=== PATIENT | female | born 1960 | race Caucasian/White ===

== ENCOUNTER 2022-01-14 09:39 | Observation (INO) ==
--- NOTE | 2022-01-03 11:14 | PAT Medication Instructions ---
Medication Instructions Date of Service January 03, 2022 Home Medications acetaminophen 500 mg tablet 500 mg PO QID PRN Pain ibuprofen 600 mg tablet 600 mg PO Q6H PRN Pain ASK your surgeon for instructions ibuprofen 600 mg tablet 600 mg PO Q6H PRN Pain Take morning of surgery With a small sip of water, OTHERWISE NOTHING TO EAT OR DRINK AFTER MIDNIGHT: acetaminophen 500 mg tablet 500 mg PO QID PRN Pain (if needed) Take evening before surgery acetaminophen 500 mg tablet 500 mg PO QID PRN Pain (if needed) Other Notes If you have any questions please call us at [phone] or [phone] or [phone] or [phone]
--- NOTE | 2022-01-07 10:58 | Anesthesiology Consultation ---
Date of Service January 07, 2022 Assessment & Plan (1) Encounter for pre-operative examination: - IV team. - Outpatient joint pathway: Per surgeon and patient, plan for outpatient joint program. Upon review of chart- patient is* an acceptable candidate for Same Day Joint Program from anesthesia perspective pending perioperative course. Pending patient is motivated, has good support and surgeon's office completes Same Day Joint Program preop requirements- patient may proceed with outpatient [facility]. Chart Review Chart Review: Acceptable Risk for Surgery and Patient seen in Pre Admission Testing Teaching & Discussion Pre-Anesthesia Teaching/Discussion Notes: Instructed NPO after midnight before surgery, except medications with 15 cc of water. Medication instructions provided according to the PAT guidelines. History Surgery Operation Date: 01/14/22 12:30 Proposed Procedures p Left Total Hip Arthroplasty - Hal Nice MD Height/Weight Height: 5 ft 5 in Weight: 112.7 kg Allergies Allergy/AdvReac Type Severity Reaction Status Date / Time No Known Allergies Allergy Unverified 01/03/22 07:44 Medications Home Medications Medication Instructions Recorded Confirmed Last Taken acetaminophen 500 mg tablet 500 mg PO QID PRN Pain 01/03/22 01/03/22 Unknown ibuprofen 600 mg tablet 600 mg PO Q6H PRN Pain 01/03/22 01/03/22 Unknown Past Medical History Medical History (Updated 01/07/22 @ 11:09 by Kath Hyde PA-C) GERD (gastroesophageal reflux disease) diet controlled, occasional TUMS use, stable per pt White coat syndrome with high blood pressure but without hypertension Patient denies h/o stroke, seizures, heart attack, heart failure, DM, blood clots or blood transfusions. Exercise / Class Metabolic Activity III < 4 Walking/Shop/Light housework (denies CP or SOB with usual activities) Past Surgical History Surgical History H/O oral surgery History of bilateral tubal ligation History of hysterectomy Past Anesthesia History No Hx of Anesthesia Complications and No Family Hx of Anesthesia Complications History of PONV No Hx of PONV and No Hx of Motion Sickness Social History Smoking Status: Never smoker Do You Dip or Chew Tobacco: No Hx Alcohol Use: No Hx Substance Use: No substance use type: does not use Review of Systems Snoring, denies witnessed apneas. Patient denies chest pain, shortness of breath, dyspnea on exertion, fever, chills, cough, wheezing, or palpitations. Physical Exam Vital Signs Vitals BP 140/90 P 96 TEMP 98.1 SP02 98% on RA RESP 18 Physical Full cervical extension range of motion without pain TMD 3.5 finger breadths Mallampati Score 2 Dentition: intact, crown, partial upper front teeth; denies chipped or loose teeth Lungs: normal respiratory effort. Clear throughout to auscultation, no adventitious breath sounds Cardiac: regular rate and rhythm, no murmurs noted Carotid arteries: negative bruit bilat Lab Results Anesthesia Preop Results Results Anesthesia Widget: WBC 8.76 K/ul (4.8-10.8) 01/07/22 Hgb 14.2 g/dl (12.0-16.0) 01/07/22 Hct 43.2 % (34.1-44.9) 01/07/22 Plt 321 K/uL (130-400) 01/07/22 Na 140 mmol/L (136-145) 01/07/22 K 3.9 mmol/L (3.5-5.1) 01/07/22 Cl 104 mmol/L (98-107) 01/07/22 CO2 28 mmol/L (21-32) 01/07/22 BUN 16 mg/dl (6-23) 01/07/22 Creat 0.66 mg/dl (0.6-1.2) 01/07/22 Glucose Level 99 mg/dl (70-99(Fasting)) 01/07/22 PT 10.5 Seconds (9.0-12.0) 01/07/22 PTT 26.5 Seconds (21.0-31.0) 01/07/22 INR 1.0 (0.9-1.1) 01/07/22 Blood Type A Negative 01/07/22 Antibody Screen NEGATIVE 01/07/22 Testing Electrocardiogram Date: 01/07/22 NSR, rate 98 bpm Left axis deviation RBBB Chest X-Ray Date: 01/07/22 PA and lateral chest radiographs are obtained. No prior studies are available for comparison at the time of dictation. The cardiomediastinal silhouette is top normal for projection. There is mild bibasilar atelectasis. The lungs and pleural spaces are otherwise clear. There is no pneumothorax. The skeletal structures are osteopenic. The bony thorax appears intact. IMPRESSION: No active disease in the chest. COVID-19 Risk Screen Screening Information COVID-19 Screen Date: 01/07/22 Exposure 21 Days Family/Household +COVID Last 21 Days: No Exposure 10 Days Any COVID Exposure Last 10 Days: No Symptoms Last 10 Days Experienced COVID Sx Last 10 Days: No + COVID 0-90 Days COVID + in Last 0-90 Days: No
[~2022-01-14 09:39] MED LIST: ACETAMINOPHEN 500 MG TAB PO SCH; BUPIVACAINE 0.5 % 5 MG/1 ML PF 10ML VIAL ONE; CeleBREX 200 MG CAP PO SCH; FAMOTIDINE 20 MG TAB PO SCH; LR 500ML BOLUS, THEN 15ML/HR IV SCH; LR 60ML/HR IV SCH; METOCLOPRAMIDE HCL 10 MG TABLET PO SCH; Scopolamine 1 MG TDSY TD SCH; TRANEXAMIC ACID 1,000 MG **IV Pre-op IV SCH; ceFAZolin 2000MG 2,000 MG/15 ML SYR IV SCH
--- NOTE | 2022-01-14 11:13 | History & Physical Bridge Note ---
Date of Service January 14, 2022 History & Physical Bridge Note I have examined the patient, reviewed the History & Physical and in the interval since the performance of the History & Physical I have noted the following changes of clinical significance: no changes noted
[2022-01-14] MEDS ORDERED: MIDAZOLAM HCL 1 MG/ML 2ML VIAL ONE ×2 (13:14→14:19)
[2022-01-14] MEDS ORDERED: fentaNYL citrate 100 MCG/2 ML VIAL ONE (13:14)
[2022-01-14] MEDS ORDERED: MoRPHine SULFATE PF 1 MG/ML 10 ML AMP/VIAL ONE (13:15)
[2022-01-14] MEDS ORDERED: BUPIVACAINE 0.5 % 5 MG/1 ML MPF 30ML VIAL ONE (13:35)
[2022-01-14] MEDS ORDERED: EPINEPHrine INJ 1 MG/ML AMP ONE (13:35)
[2022-01-14] MEDS ORDERED: LIDOCAINE 2% MPF LOCAL 5 ML VIAL INFIL ONE (13:36)
[2022-01-14] MEDS ORDERED: ONDANSETRON INJ 2 MG/ML 2 ML VIAL ONE (13:36)
[2022-01-14] MEDS ORDERED: PROPOFOL IV EMULSION 10 MG/ML 20 ML VIAL IV ONE (13:37)
[2022-01-14] MEDS ORDERED: ATROPINE SULFATE 0.1 MG/ML 10ML SYR IV PRN (14:03)
[2022-01-14] MEDS ORDERED: ePHEDrine sulfate 50 MG/ML AMP IV PRN ×2 (14:03→18:53)
[2022-01-14] MEDS ORDERED: HYDROmorphone INJ 2 MG/ML SYR/VIAL IV PRN (14:03)
[2022-01-14] MEDS ORDERED: fentaNYL citrate 100 MCG/2 ML VIAL IV PRN (14:03)
[2022-01-14] MEDS ORDERED: PHENYLEPHRINE 100MCG/ML 5ML SYR ONE (14:33)
--- NOTE | 2022-01-14 15:48 | Operative Report ---
PG Post Operative Report Pre & Post Diagnosis Operation Date: 01/14/22 12:30 Pre-Op Diagnosis: Left Hip Advanced Degenerative Joint Disease Post-Op Diagnosis: Left Hip Advanced Degenerative Joint Disease I identified the patient and participated in the time-out.: Yes Procedure Operation Date: 01/14/22 12:30 Actual Procedures p Left Total Hip Arthroplasty, Uncemented(Left) - Hal Nice MD Surgeon Hal Nice MD Manager Supply Jb Roche PA-C Estimated Blood Loss 200 Findings Consistent with Post-Op Diagnosis Operative findings were advanced left hip DJD. She had a grade 4 [id number] disease of the femoral head and acetabulum. Moderate-sized joint effusion. Fairly minimal osteophyte formation. Fluids 1300 cc Specimens Left femoral head sent for pathology Drains None Anesthesia Type Spinal MAC Complications none Disposition Accompanied Patient To Recovery: No Indications Patient is 61-year-old female has had a several year history of increasing bilateral hip pain discomfort the left side worse than the right. She is taken various oral medicines without much relief. X-rays show advanced hip arthritis on both sides left side a bit worse than the right. She elected proceed with total hip arthroplasty. Description of Procedure Operative implants consist of: 1 Biomet G7 size 54 mm acetabular shell. 2. [place] hole fiber heel piece shaper. 3. 6.5 cancellous acetabular screws were 35 mm in length by 30 mm meters in length. 4. Highly cross-linked polyethylene liner with a 54 mm outer diameter and 36 mm inner diameter. 5. DePuy [place]ail size 12 short neck/125 degree angle femoral stem. 6. +5/36 mm ceramic articular ball. The patient was taken the operating room, identified, placed on the operating table supine position protectors were properly padded. IV antibiotics tried by anesthesia team. Spinal anesthetic had been implemented holding area. Perera catheter was placed in sterile fashion. Patient then placed in the right lateral decubitus position. An axillary roll was placed. A Stulberg hip positioner was used for positioning. Left hip and leg were then prepped and draped in usual sterile fashion. A posterior lateral posterior left hip was then performed through a curvilinear incision centered over the greater trochanter. Sharp dissection Through subcutaneous tissue down to level the IT band gluteal fascia the IT band gluteal fascia incised longitudinally in line with skin incision. The underlying greater bursa was excised. The piriformis and external rotators were tagged and taken off the posterior aspect hip joint capsule. Great care was taken throughout the procedure protect the sciatic nerve at all times. A posterior capsulotomy was then performed leaving a large flap for later repair. Hip was internally rotated and dislocated. A femoral neck osteotomy cut was made with Final Cut about 12 mm above the lesser trochanter. Femoral head was removed and sent for pathology. The femur was retracted anteriorly. Attention drawn the acetabulum. The acetabular labrum was excised. Pulmonary fat was excised. Sequential reaming the acetabular was then performed beginning with a size 45 and progressing up to a 53. I did reamed a little bit with a 54 reamer and then placed a 54 mm Biomet G7 acetabular shell in about 40 degrees lateral opening and 20 degrees of anteversion. It was fixed with two 6.5 cancellous acetabular screws. Trial liner was placed. Attention drawn the femur. The proximal femur was entered with a [place] cutter followed by canal finder. I then broached begin the size 8 and progressing up to 11. We got good pretty good fit at 11. We trialed the hip with this and it was extremely stable. Unfortunate was a bit tight and we had a little difficulty dislocating the hip and in doing so the femoral stem was seen to rotate in the femoral canal so we broached up to a size 12. He elected to use a short neck in order to decrease soft tissue tension. We elect to place these implants. Nupathe all trial implants were removed. An apex hole fiber heel piece shaper was placed. Highly cross-linked polyethylene liner was placed. A size 12 KLA short neck/125 degree angle femoral stem was impacted in position. He had excellent rotational stability. A +5/36 mm ceramic articular ball was placed. Hip was located once again found to be stable. Attention drawn toward closing. Wounds irrigated scope sounds pulsatile lavage solution. We did inject locally with 60 cc of half percent Marcaine with epinephrine. The posterior capsule and external rotators were repaired through drill holes in the posterior trochanter with #2 Tycron suture. The IT band gluteal fascia then closed with #1 PDS suture running fashion for subcutaneous tissues then closed with 2 layers with a deep layer #1 Vicryl suture and subcutaneous tissue with 2-0 Dexon suture in a buried interrupted fashion the skin was closed skin ana luisa. Leg was then cleaned and dried. A Prevena VAC. Dressing was then applied. The patient was then transferred to the recovery room in stable condition. Patient tolerated th e procedure well and there are no complications. Jb Roche, my physician commissary assistant, was present for the entire procedure. His assistance was essential and required for appropriate patient positioning, prepping and draping, surgical exposure, performing the technical details of the operation, placement the implants, closure of the wound, and placement of the sterile bandage. I attest to the content of the Intraoperative Record and any orders documented therein. Any exceptions are noted below.
--- NOTE | 2022-01-14 16:13 | XRay Report ---
XR hip 1V LT w pelvis HISTORY: 61 years-old Female IN PACU - Post Surgical left hip total joint arthroplasty COMPARISON: Pelvis and hip radiographs 01/02/2022 TECHNIQUE: AP view of the pelvis with crosstable lateral view of the left hip FINDINGS: Severe right hip osteoarthritis redemonstrated. Left hip total joint arthroplasty with lateral skin s taples, expected postoperative soft tissue swelling and deep tissue air. No acute fracture or unexpec benson opaque foreign body. IMPRESSION: Left hip total joint arthroplasty with expected postoperative changes. ACT 112: Negative or not required by law. The above report was generated using voice recognition software. It may contain grammatical, syntax o r spelling errors. Electronically signed by: Nikolas Sol M.D. 01/14/2022 4:11 PM
[2022-01-14] MEDS ORDERED: bisacodyL 10 MG SUPP PR PRN (16:24)
[2022-01-14] MEDS ORDERED: KETOROLAC 30 MG/ML VIAL IV SCH (16:24)
[2022-01-14] MEDS ORDERED: MAGNESIUM HYDROXIDE SUSP 30 ML UDC PO PRN (16:24)
[2022-01-14] MEDS ORDERED: NALOXONE HCL 0.4 MG/1 ML VIAL/CARP IV PRN ×2 (16:24→18:53)
[2022-01-14] MEDS ORDERED: ALUMINUM/MAGNESIUM SUSP 30 ML UDC PO PRN (16:24)
--- NOTE | 2022-01-14 16:33 | Anesthesiology Progress Note ---
Date of Service January 14, 2022 Anesthesia Post Procedure Vital Signs Vital Signs: Temp Pulse Pulse Resp BP BP Pulse Ox 01/14/22 16:05 97.9 F 89 17 114/62 98 01/14/22 15:55 82 21 146/74 H 99 01/14/22 15:45 89 14 118/68 100 01/14/22 15:38 97.7 F 92 H 18 117/74 93 01/14/22 10:00 98.6 F 107 H 20 166/97 H 98 O2 Del Method O2 Flow Rate 01/14/22 16:05 Room Air 01/14/22 15:55 Oxymask 2 01/14/22 15:45 Oxymask 6 01/14/22 15:38 Oxymask 6 01/14/22 10:00 Room Air Transfer of Care Handoff Completed per policy Notes Mental Status: alert / awake / arousable and participated in evaluation Patient Amnestic to Procedure: Yes Nausea / Vomiting: adequately controlled Pain: adequately controlled Airway Patency, RR, SpO2: stable & adequate BP & HR: stable & adequate Hydration State: stable & adequate Neuraxial Anesthesia: was administered and sensory block is resolving Anesthetic Complications: no major complications apparent and Pt Satisfied with anesthetic care
[2022-01-14] MEDS: SODIUM CHLORIDE 0.9% 1000ML 1,000 ML IV SCH (16:36)
[2022-01-14] MEDS: Scopolamine CHECK PATCH PLACEMENT SCH (16:36)
[2022-01-14] MEDS: ASCORBIC ACID 500 MG TAB PO SCH (17:47)
[2022-01-14] MEDS ORDERED: MoRPHine SULFATE PF 1 MG/ML 10 ML AMP/VIAL INT SPINAL ONE (18:53)
[2022-01-14] MEDS ORDERED: MEPERIDINE HCL 25 MG/ML CARP/VIAL IV PRN (18:53)
[2022-01-14] MEDS ORDERED: LACTATED RINGER'S 500 ML IV PRN (18:53)
[2022-01-14] MEDS ORDERED: KETOROLAC 30 MG/ML VIAL IV PRN (18:53)
[2022-01-14] MEDS ORDERED: NALBUPHINE HCL INJ 10 MG/ML AMP IV PRN (18:53)
[2022-01-14] MEDS ORDERED: diphenhydrAMINE 50 MG/ML VIAL IV PRN (18:53)
[2022-01-14] MEDS ORDERED: NALOXONE HCL 1 MG in SODIUM CHLORIDE 0.9% 1000ML 1,000 ML IV PRN (18:53)
[2022-01-14] MEDS ORDERED: ONDANSETRON INJ 2 MG/ML 2 ML VIAL IV PRN (18:53)
[2022-01-14] MEDS ORDERED: NALOXONE HCL 0.08 MG in SYRINGE 1.8 ML IV PRN (18:53)
[2022-01-14] MEDS ORDERED: SODIUM CHLORIDE 0.9% 1000ML 1,000 ML IV SCH (19:00)
[2022-01-14] MEDS ORDERED: DC INTRASPINAL MORPHINE SCH (19:00)
[2022-01-14] MEDS ORDERED: NO NARCOTICS OR SEDATIVES SCH (19:00)
[2022-01-14] MEDS: DOCUSATE SODIUM 100 MG CAP PO SCH (21:00)
[2022-01-14] MEDS: ASPIRIN 81 MG ECTAB PO SCH (21:01)
[2022-01-14] MEDS: ACETAMINOPHEN 500 MG TAB PO SCH (21:02)
[2022-01-14] MEDS: ceFAZolin 2000MG 2,000 MG/15 ML SYR IV SCH (21:02)
[2022-01-14] MEDS: SENNA 8.6 MG TAB PO SCH (21:12)
[2022-01-14] MEDS ORDERED: TRANEXAMIC ACID / 0.7% NACL 1,000 MG/100 ML BAG IV SCH (21:45)
[2022-01-15] MEDS: Scopolamine CHECK PATCH PLACEMENT SCH ×3 (00:12→15:31)
[2022-01-15] MEDS: SODIUM CHLORIDE 0.9% 1000ML 1,000 ML IV SCH (02:43)
[2022-01-15] MEDS: ACETAMINOPHEN 500 MG TAB PO SCH ×3 (05:07→20:53)
[2022-01-15] MEDS: ceFAZolin 2000MG 2,000 MG/15 ML SYR IV SCH (05:07)
[2022-01-15] MEDS ORDERED: dexAMETHasone 10 MG in SYRINGE 0 ML IV SCH (08:00)
[2022-01-15 08:27] LABS: Basophils # (auto) 0.03 K/uL (0-0.2); Basophils % (auto) 0.2 %; Eosinophils # (auto) 0.05 K/uL (0-0.50); Eosinophils % (auto) 0.4 %; Hematocrit (blood only) 35.1 % (34.1-44.9); Hemoglobin 11.6 g/dl (12.0-16.0); Immature Granulocytes # (auto) 0.09 K/uL (0.00-0.02); Immature Granulocytes % (auto) 0.7 %; Lymphocytes # (auto) 1.04 K/uL (1.2-3.4); Lymphocytes % (auto) 8.4 %; Mean Corpuscular Hemoglobin 29.2 pg (25.0-34.0); Mean Corpuscular Volume 88.4 fL (80.0-100.0); Mean Platelet Volume 10.7 fL (9.4-12.3); Monocytes # (auto) 0.94 K/uL (0.24-0.82); Monocytes % (auto) 7.6 %; Neutrophils # (auto) 10.29 K/uL (1.4-6.5); Neutrophils % (auto) 82.7 %; Platelet Count 253 K/uL (130-400); RDW Standard Deviation 48.6 fL (36.4-46.3); Red Blood Count 3.97 M/uL (3.93-5.22); White Blood Count 12.44 K/ul (4.8-10.8)
[2022-01-15] MEDS: DOCUSATE SODIUM 100 MG CAP PO SCH ×2 (08:35→20:52)
[2022-01-15] MEDS: MULTIVITAMIN TAB PO SCH (08:35)
[2022-01-15] MEDS: ASPIRIN 81 MG ECTAB PO SCH ×2 (08:35→20:52)
[2022-01-15] MEDS: ASCORBIC ACID 500 MG TAB PO SCH ×2 (08:35→17:51)
[2022-01-15 08:51] LABS: BUN Creatinine Ratio 18.8 (10-20); Calcium 8.8 mg/dl (8.5-10.1); Creatinine Clr Calc Pharmacy 106.7 ml/min; Est GFR (African American) 107.4 ml/min; Est GFR (Non-African American) 92.6 ml/min; Potassium 4.2 mmol/L (3.5-5.1)
[2022-01-15] MEDS ORDERED: ONDANSETRON INJ 2 MG/ML 2 ML VIAL IV PRN (12:53)
[2022-01-15] MEDS ORDERED: diphenhydrAMINE Capsule 25 MG CAP PO PRN (12:53)
[2022-01-15] MEDS ORDERED: HYDROmorphone INJ 0.5 MG/0.5 ML SYR IV PRN (12:53)
[2022-01-15] MEDS ORDERED: traMADol HCL 50 MG TABLET PO PRN (12:53)
[2022-01-15] MEDS ORDERED: METOCLOPRAMIDE HCL INJ 5 MG/ML 2 ML VIAL IV PRN (12:53)
--- NOTE | 2022-01-15 14:55 | Progress Notes ---
SUBJECTIVE: A 61-year-old female postoperative day 1 from a left hip replacement. She is doing okay . Had a rough night last night as she had a fainting episode when she first got up. Had a bit more pain this morning, but doing better now after pain medicine. She had gone through therapy and strugg led initially, but has done better in the afternoon. No chest pain or shortness of breath. Not feel ing dizzy or lightheaded. OBJECTIVE: VITAL SIGNS: Temperature 36.7. Vital signs are stable. GENERAL: Shows a pleasant middle-aged female. She is sitting up in her bedside chair and comfortabl e. LUNGS: Clear to auscultation. HEART: Regular rate and rhythm. ABDOMEN: Soft, nontender, nondistended. EXTREMITIES: Grossly neurovascularly intact except as follows: Examination of the left hip reveals the Prevena VAC dressing to be in place. Leg lengths were equal. Thigh is soft and supple. NEUROLOGIC: She is neurologically intact. LABORATORY DATA: Hemoglobin 11.6. Hematocrit 35.1. Electrolytes are stable. ASSESSMENT: A 61-year-old female postoperative day 1 from a left hip replacement, doing okay. Had a little bit of a rough night last night and in the morning, but doing better. She did okay in therap y, but not great. PLAN: 1. DVT prophylaxis includes thigh-high TEDs, SCDs, and aspirin twice a day. 2. PT, OT, weightbear as tolerated. Left total hip protocol. 3. Pain control, doing better this afternoon with pain management. 4. Disposition: She is hoping to be discharged to home with home health. We are going to keep her tonight to therapy tomorrow. Hopefully, get her home tomorrow. Job ID: [id number]
[2022-01-15] MEDS: KETOROLAC 30 MG/ML VIAL IV SCH ×2 (17:53→23:42)
[2022-01-15] MEDS: SENNA 8.6 MG TAB PO SCH (20:51)
[2022-01-16] MEDS: Scopolamine CHECK PATCH PLACEMENT SCH ×2 (00:06→09:53)
[2022-01-16] MEDS: KETOROLAC 30 MG/ML VIAL IV SCH ×2 (05:36→10:55)
[2022-01-16] MEDS: ACETAMINOPHEN 500 MG TAB PO SCH (05:36)
[2022-01-16] MEDS: ASPIRIN 81 MG ECTAB PO SCH (09:54)
[2022-01-16] MEDS: DOCUSATE SODIUM 100 MG CAP PO SCH (09:54)
[2022-01-16] MEDS: ASCORBIC ACID 500 MG TAB PO SCH (09:55)
[2022-01-16] MEDS: MULTIVITAMIN TAB PO SCH (09:55)
--- NOTE | 2022-01-16 11:38 | Progress Notes ---
DATE OF SERVICE: 01/16/2022. SUBJECTIVE: A 61-year-old female now postop day 2 from a left total hip replacement. She is doing m uch better today. She got up and walked around some last evening with minimal assist. Pain is impro bakari. No chest pain or shortness of breath. Not feeling dizzy or lightheaded. Hoping to go home toolga lidia ay. OBJECTIVE: VITAL SIGNS: Temperature 36.7. Vital signs are stable. PHYSICAL EXAMINATION: GENERAL: Shows a pleasant middle-aged female. She is sitting in her bedside chair, looks comfortabl e. EXTREMITIES: Examination of the left hip reveals the Prevena VAC to be in place. Thigh is soft and supple. No significant drainage. Leg lengths were equal. Hip is located. She is neurologically in tact. ASSESSMENT: A 61-year-old female postoperative day 2 from a left hip replacement, doing pretty well. Doing much better today. Getting around better. Pain is controlled. Hip is located. She is neur ologically intact. PLAN: 1. DVT prophylaxis includes thigh-high TEDs, SCDs, and aspirin twice a day. 2. PT, OT, weightbear as tolerated. Left total hip protocol. 3. Pain control, doing okay with current pain regimen. 4. Disposition: Plan to discharge to home after therapy today. Job ID: [id number]
--- NOTE | 2022-01-18 18:18 | Discharge Summary ---
Date of Service January 18, 2022 Discharge Data Procedures Performed Operation Date: 01/14/22 12:30 Actual Procedures p Left Total Hip Arthroplasty, Uncemented(Left) - Hal Nice MD Hospital Course (1) S/P total left hip arthroplasty: This is a 61 year old patient admitted on 01/14/22 and underwent total hip arthroplasty. She tolerated the procedure well and there were no complications. Transferred to the PACU post op and later to the orthopedic floor for further care. She was given ancef for antibiotic prophylaxis. She was also given TREVOR stockings, SCDs, and aspirin for DVT prophylaxis. Hemoglobin, hematocrit, and vital signs were monitored during her hospital stay and remained stable. Did not require any blood transfusions. On POD #1 she did have a syncopal episode. There were no complications during her hospital stay. By post op day #2 the patient was tolerating a regular diet, pain was reasonably controlled with oral pain medicine, and she was participating in physical therapy. On post op day #2 the patient was discharged home and set up with home health care. She was given printed discharge instructions including prescriptions for extra strength tylenol, aspirin, ketorolac, zofran, senokot, and tramadol. Continue physical therapy, weight bearing as tolerated. Continue hip precautions. Continue TREVOR stockings. Follow up approximately 2 weeks post op or sooner if there are problems or concerns. Coding Level of Care Code None Diagnoses S/P total left hip arthroplasty Z96.642
== END 2022-01-16 12:38 | disposition home health service (06) ==
LOC: 3E 09:39 → ASU 09:39
DX: M16.12 Unilateral primary osteoarthritis, left hip; Z79.82 Long term (current) use of aspirin; M65.9 Synovitis and tenosynovitis, unspecified

== ENCOUNTER 2023-04-28 05:06 | Observation (INO) ==
--- NOTE | 2023-03-27 14:50 | PAT Medication Instructions ---
Medication Instructions Date of Service March 27, 2023 Home Medications Medication Instructions Recorded ondansetron HCl 4 mg tablet 4 mg PO Q6 PRN nausea #20 tabs 01/12/22 sennosides 8.6 mg-docusate sodium 1 tab-cap PO DAILY #14 tabs 01/12/22 50 mg tablet (Senokot-S) tramadol 50 mg tablet 50 - 100 mg (1 - 2 x 50 mg) PO Q6H 01/12/22 PRN pain #40 tabs Medication List ondansetron HCl 4 mg tablet 4 mg PO Q6 PRN nausea sennosides 8.6 mg-docusate sodium 50 mg tablet (Senokot-S) 1 tab-cap PO DAILY tramadol 50 mg tablet 50 - 100 mg (1 - 2 x 50 mg) PO Q6H PRN pain acetaminophen 500 mg capsule 1,000 mg PO QAM aspirin 81 mg tablet,delayed release (Juan Low Dose Aspirin) 81 mg PO QAM ketorolac 10 mg tablet 10 mg PO Q6 PRN Pain MEDICATION INSTRUCTIONS: ASK your surgeon for instructions ketorolac 10 mg tablet 10 mg PO Q6 PRN Pain ASK your prescriber and surgeon aspirin 81 mg tablet,delayed release (Juan Low Dose Aspirin) 81 mg PO QAM DO NOT take the morning of surgery sennosides 8.6 mg-docusate sodium 50 mg tablet (Senokot-S) 1 tab-cap PO DAILY Take morning of surgery With a small sip of water, OTHERWISE NOTHING TO EAT OR DRINK AFTER MIDNIGHT: tramadol 50 mg tablet 50 - 100 mg (1 - 2 x 50 mg) PO Q6H PRN pain ondansetron HCl 4 mg tablet 4 mg PO Q6 PRN nausea acetaminophen 500 mg capsule 1,000 mg PO QAM Take evening before surgery tramadol 50 mg tablet 50 - 100 mg (1 - 2 x 50 mg) PO Q6H PRN pain ondansetron HCl 4 mg tablet 4 mg PO Q6 PRN nausea Other Notes If you have any questions please call us at [phone] or [phone] or [phone] or [phone]
--- NOTE | 2023-04-02 10:17 | Anesthesiology Consultation ---
Date of Service April 02, 2023 Assessment & Plan (1) Encounter for pre-operative examination: - Infectious disease screening: Per assessment on 04/02/23: No known infectious disease contacts or current infectious disease symptoms. No noted recent Covid positive test result. - Outpatient joint assessment: Pt currently scheduled for inpatient pathway. If surgeon requests review for outpatient joint pathway, patient is not recommended candidate for outpatient joint program from anesthesia standpoint. - S/P Left THR (01/14/22): SAB at L2-3 at [facility] - Cardiology visit (04/03/23): "Mrs. Ramirez is a 63 year old female with a history of White Coat Hypertension, Osteoarthritis of Bilateral Hips s/p Left WINSTON, GERD, and Obesity who presents today for a Preoperative Cardiologic Evaluation due to an Aortic Stenosis Murmur (that radiates to the upper chest, suprasternal notch, and into the right lower anterior neck) and an Abnormal Pre- op EKG 04/02/23 showing NSR with LAFB/RBBB (Bifascicular Block) and minimal voltage criteria for LVH, may be a normal variant; No change compared to 01/07/22 tracing. She is scheduled to undergo a Right WINSTON with Dr. Hal Nice on 04/28/23 utilizing spinal anesthesia. Patient did have the above mentioned EKG abnormalities on her preop EKG in December 2021 but she was not informed of them. This EKG was done right before her left WINSTON -- a surgery that she tolerated without cardiac or anesthesia related complications.. Her blood pressure on recheck today was still elevated 136/88 -- but it is better than it was when she 1st got here. Patient remains physically active on a daily basis, is able to climb greater than 2 flights of stairs, do housework, walk, carry laundry, carry groceries, etc without limiting cardiopulmonary symptoms. Patient has not experienced any angina pectoris or anginal equivalent symptoms, overt signs or symptoms of heart failure, recent changes in her exertional tolerance, nor has she had any symptoms suggestive of dysrhythmia. She has not had any neurologic symptoms suggestive of stroke or mini stroke. She does not experience claudication with her day-to-day activities. We discussed her aortic valve murmur being consistent with Aortic Stenosis (most likely mild-to moderate ), this will be verified on an upcoming Echocardiogram. We also discussed the abnormalities on her EKG, discussed what a left anterior fascicular block and a right bundle branch block are, and we also discussed how this can be related her valvular heart disease (calcium can infiltrate into the conduction system leading to conduction disturbance). Additionally with her Echocardiogram we will be able to see if she has any significant LVH. We also recommend checking a fasting lipid panel and if her lipids are not well controlled, recommend statin therapy to lower her cholesterol numbers and to slow progression of valvular heart disease.. Based on her functional status without limiting cardiopulmonary symptoms, stable EKG tracing, and provided that her aortic stenosis is only [id number] on her upcoming Echocardiogram -- patient will be considered an acceptable cardiac risk to proceed with surgery as scheduled. There is no need for further ischemic workup at this time." - Awaiting [facility] cardio-ordered preop Echo (date TBD). Chart Review Chart Review: Patient seen in Pre Admission Testing Teaching & Discussion Pre-Anesthesia Teaching/Discussion Notes: Instructed NPO after midnight before surgery,except medications with 15 cc of water. Medication instructions provided according to the PAT guidelines. History Surgery Operation Date: 04/28/23 12:30 Proposed Procedures p Right Total Hip Arthroplasty - Hal Nice MD Height/Weight Height: 5 ft 5 in Weight: 114.4 kg Allergies Allergy/AdvReac Type Severity Reaction Status Date / Time No Known Allergies Allergy Verified 04/03/23 08:53 Medications Home Medications Medication Instructions Recorded Confirmed Last Taken acetaminophen 500 mg capsule 1,000 mg PO QAM Pain 03/26/23 04/03/23 Unknown aspirin 81 mg tablet,delayed 81 mg PO QAM 03/26/23 04/03/23 Unknown release (Juan Low Dose Aspirin) Past Medical History Medical History Arthritis of right hip Bifascicular block EKG 04/02/2023: LAFB/RBBB GERD (gastroesophageal reflux disease) diet controlled/stable, occasional TUMS PRN Morbid obesity White coat syndrome with high blood pressure but without hypertension Exercise / Class Metabolic Activity III < 4 Walking/Shop/Light housework Past Family History Family History Son Diabetes Past Surgical History Surgical History H/O oral surgery History of bilateral tubal ligation History of hysterectomy History of total hip arthroplasty Left THR (01/14/22): SAB at L2-3 at [facility] (several attempts for SAB per patient) Past Anesthesia History No Hx of Anesthesia Complications and No Family Hx of Anesthesia Complications History of PONV No Hx of PONV and No Hx of Motion Sickness Social History Smoking Status: Never smoker Do You Dip or Chew Tobacco: No Hx Alcohol Use: Yes Alcohol type: wine alcohol intake frequency: holidays/special occasions only Hx Substance Use: No substance use type: does not use Review of Systems Patient denies chest pain, shortness of breath, dyspnea on exertion, fever, chills, cough, wheezing, palpitations. Physical Exam Vital Signs VITALS BP 161/84 P 91 TEMP 98.1 SP02 96%RA RESP 16 PHYSICAL Full cervical extension range of motion. Full TMJ range of motion. TMD 3 finger breaths Mallampati Score 1 Dentition: upper partial (including upper front teeth), + crown (lower right side) Lungs: clear throughout to auscultation Cardiac: regular rate and rhythm, II/ systolic murmur with faint right sided carotid radiation (carotid radiation not appreciated at subsequent [facility] cardio preop appt 04/03/23- per cardiology note, "grade 2/6 crescendo decrescendo basal systolic murmur heard best at the right 2nd intercostal space, this radiates to the upper chest, suprasternal notch, and right lower anterior neck, I do not hear any radiation of this murmur into the carotids") Spine: normal Extremities: non-pitting LE edema Thick neck Lab Results Anesthesia Preop Results Results Anesthesia Widget: WBC 8.12 K/ul (4.8-10.8) 04/02/23 Hgb 14.3 g/dl (12.0-16.0) 04/02/23 Hct 44.3 % (37.0-47.0) 04/02/23 Plt 295 K/uL (130-400) 04/02/23 Na 139 mmol/L (136-145) 04/02/23 K 4.1 mmol/L (3.5-5.1) 04/02/23 Cl 105 mmol/L (98-107) 04/02/23 CO2 27 mmol/L (21-32) 04/02/23 BUN 16 mg/dl (6-23) 04/02/23 Creat 0.67 mg/dl (0.6-1.2) 04/02/23 Glucose Level 112 mg/dl (70-99(Fasting)) H 04/02/23 PT 10.5 Seconds (9.0-12.0) 04/02/23 PTT 27 Seconds (21-31) 04/02/23 INR 1.0 (0.9-1.1) 04/02/23 Blood Type A Negative 04/02/23 Antibody Screen NEGATIVE 04/02/23 Testing Electrocardiogram Date: 04/02/23 NSR at 98bpm. LAFB. RBBB. Minimal voltage criteria for LVH, may be normal zion iant (R in aVL). No significant change compared to 01/07/2022 per hat brusher machine comparison. Chest X-Ray Date: 04/02/23 FINDINGS: PA and lateral chest radiographs are compared to study dated 01/07/2022. The cardiomediastinal silhouette is top normal for projection. The lungs and pleural spaces are clear. There is no pneumothorax. The skeletal structures are osteopenic. The bony thorax appears intact. IMPRESSION: No active disease in the chest.
[2023-04-28] MEDS: ACETAMINOPHEN 500 MG TAB PO SCH ×2 (05:50→15:09)
[2023-04-28] MEDS: CeleBREX 200 MG CAP PO SCH (05:50)
[2023-04-28] MEDS: LR 60ML/HR IV SCH (05:50)
[2023-04-28] MEDS: Scopolamine 1 MG TDSY TD SCH (05:50)
[2023-04-28] MEDS: dexAMETHasone**PF** 10 MG/ML VIAL IV SCH (05:50)
[2023-04-28] MEDS: METOCLOPRAMIDE HCL 10 MG TABLET PO SCH (05:50)
[2023-04-28] MEDS: FAMOTIDINE 20 MG TAB PO SCH (05:50)
[2023-04-28] MEDS: LR 15ML/HR IV SCH (05:56)
[2023-04-28] MEDS ORDERED: dexAMETHasone 4 MG TAB PO SCH (06:00)
[2023-04-28] MEDS ORDERED: MIDAZOLAM HCL 1 MG/ML 2ML VIAL ONE (06:07)
[2023-04-28] MEDS ORDERED: DexMEDEtomidine HCL IV 100 MCG/ML VIAL IV ONE (06:08)
[2023-04-28] MEDS ORDERED: SUCCINYLCHOLINE 100MG/5ML SYR IV ONE (06:11)
[2023-04-28] MEDS ORDERED: ePHEDrine sulfate 50 MG/5 ML SYR ONE (06:11)
[2023-04-28] MEDS ORDERED: BUPIVACAINE 0.5 % 5 MG/1 ML PF 10ML VIAL ONE (06:14)
[2023-04-28] MEDS ORDERED: GLYCOPYRROLATE 0.2 MG/ML VIAL ONE (06:19)
[2023-04-28] MEDS ORDERED: ROPIVACAINE 0.5% 5 MG/ML 30 ML VIAL ONE (06:23)
[2023-04-28] MEDS ORDERED: LIDOCAINE 2% 2 ML VIAL/AMP(20MG/ML) INFIL ONE (06:28)
[2023-04-28] MEDS ORDERED: fentaNYL citrate PF 100 MCG/2 ML VIAL ONE (06:28)
[2023-04-28] MEDS ORDERED: MoRPHine SULFATE PF 1 MG/ML 10 ML AMP/VIAL ONE (06:46)
[2023-04-28] MEDS: TRANEXAMIC ACID 1,000 MG **IV Pre-op IV SCH (06:47)
--- NOTE | 2023-04-28 06:53 | History & Physical Bridge Note ---
Date of Service April 28, 2023 History & Physical Bridge Note I have examined the patient, reviewed the History & Physical and in the interval since the performance of the History & Physical I have noted the following changes of clinical significance: no changes noted
[2023-04-28] MEDS: ceFAZolin 2000MG 2,000 MG/15 ML SYR IV SCH ×2 (07:00→15:09)
[2023-04-28] MEDS ORDERED: LACTATED RINGER'S 500 ML IV PRN (07:10)
[2023-04-28] MEDS ORDERED: diphenhydrAMINE 50 MG/ML VIAL IV PRN (07:10)
[2023-04-28] MEDS ORDERED: NALOXONE HCL 0.08 MG in SYRINGE 1.8 ML IV PRN (07:10)
[2023-04-28] MEDS ORDERED: HYDROmorphone INJ 0.5 MG/0.5 ML SYR IV PRN (07:10)
[2023-04-28] MEDS ORDERED: NALOXONE HCL 1 MG in SODIUM CHLORIDE 0.9% 1,000 ML IV PRN (07:10)
[2023-04-28] MEDS ORDERED: MoRPHine SULFATE 2 MG/ML CARP IV PRN (07:10)
[2023-04-28] MEDS ORDERED: NALOXONE HCL 0.4 MG/1 ML VIAL/CARP IV PRN ×2 (07:10→10:16)
[2023-04-28] MEDS ORDERED: NALBUPHINE HCL 5 MG in SYRINGE 0 ML IV PRN (07:10)
[2023-04-28] MEDS ORDERED: ONDANSETRON INJ 2 MG/ML 2 ML VIAL IV PRN ×2 (07:10→10:16)
[2023-04-28] MEDS ORDERED: ePHEDrine sulfate 50 MG/ML AMP IV PRN (07:10)
[2023-04-28] MEDS ORDERED: DC INTRASPINAL MORPHINE SCH (07:15)
[2023-04-28] MEDS ORDERED: NO NARCOTICS OR SEDATIVES SCH (07:15)
[2023-04-28] MEDS ORDERED: PROPOFOL IV EMULSION 10 MG/ML 20 ML VIAL IV ONE (07:26)
[2023-04-28] MEDS: BUPIVACAINE/EPINEPHRINE 0.5% MPF 1:200,000 30 ML VIAL ONE (07:39)
--- NOTE | 2023-04-28 08:47 | Operative Report ---
PG Post Operative Report Pre & Post Diagnosis Operation Date: 04/28/23 07:00 Pre-Op Diagnosis: Right Hip Degenerative Joint Disease Post-Op Diagnosis: Right Hip Degenerative Joint Disease I identified the patient and participated in the time-out.: Yes Procedure Operation Date: 04/28/23 07:00 Actual Procedures p Right Total Hip Arthroplasty, Uncemented(Right) - Hal Nice MD Surgeon Hal Nice MD Well Services Operator Jb Roche PA-C Estimated Blood Loss 200 Findings Consistent with Post-Op Diagnosis Operative findings with advanced right hip DJD. She had grade 4 [id number] disease the femoral head and acetabulum. She had a significant hip joint effusion. Not a lot osteophyte formation. Specimens Right femoral head sent for pathology. Anesthesia Type Spinal MAC Complications none Disposition Accompanied Patient To Recovery: No Indications Patient is 63-year-old female is had a several year history of increasing bilateral hip pain discomfort is worse over time. She had her left hip replaced about a year and a half ago done well from this. She became more debilitated by right hip pain. X-rays show advanced right hip arthritis. She elected proceed with surgical intervention/management/total hip replacement. Description of Procedure Operative implants consist of: 1 Biomet G7 size 54 mm acetabular shell. 2. Biomet 6.5 cancellous acetabular screws 1 at 35 mm in length 1 to 30 mm length. 3. Huntington hand picker. 4. Highly cross-linked polyethylene liner with a 54 mm outer diameter and 36 mm inner diameter. 5. DePuy Corail I size 12 short neck 125 degree angle femoral stem. 6. +5/36 mm ceramic articular ball. The patient was taken the operating, identified, placed on the operating table in the supine position but all contact areas were appropriately padded. IV antibiotics tried by anesthesia team. A spinal anesthetic had been implemented holding area. Perera catheter was placed in sterile fashion. The patient was then placed in the left lateral decubitus position. An axillary roll was placed. Stulberg hip positioner was used for positioning. The right hip and leg were then prepped and draped in usual sterile fashion. A posterolateral approach to the right hip was then performed to a curvilinear incision centered over the greater trochanter. Sharp dissection was carried through subcutaneous tissue down to level the IT band gluteal fascia. The IT band gluteal fascia were incised longitudinally in line with skin incision. The underlying greater bursa was excised. The piriformis and external rotators along with the posterior hip joint capsule were then released from the posterior aspect the hip as a single layer. Great care was taken throughout the procedure protect the sciatic nerve at all times. The hip was internally rotated and dislocated. Femoral neck osteotomy cut was made with Final Cut about 12 mm above the lesser trochanter. Femoral head was removed and sent for pathology. The femur was retracted anteriorly. Attention drawn the acetabulum. The acetabular labrum was excised. The pulmonary fat was excised. Sequential reaming the acetabular was then performed again with a size 45 and progressing up to 53. I reamed a little bit with a 54 reamer. A Biomet G7 size 54 mm acetabular shell was then placed in about 40 degrees lateral opening and 20 degrees of anteversion. Was fixed with two 6.5 cancellous acetabular screws. Trial liner was placed. Attention drawn the femur. The proximal femur was then with a Pivot3 cutter followed by canal finder. I then broached beginning with a size 8 and progressing up to a 12. We got excellent fitted to 12. Then trialed the hip and the short neck seem to fit most appropriately with the +5 head. Fully stable full extension and external rotation flexion to 90 degrees internal rotation to over [address] We elect to place these implants. All trial implants were removed. An apex hole investigation clerk was placed. Highly cross-linked polyethylene liner was placed. A size 12 KLA 125 degree angle short neck femoral stem was impacted in position. +5/36 mm ceramic articular ball was placed. Hip was located and once again found to be stable. Leg lengths seemed equal. I injected locally with 60 cc of half percent Marcaine with epinephrine. I irrigated the wound extensively. The posterior capsule was then repaired along with the external rotators as a single layer with #2 Tycron suture. The IT band gluteal fascia then closed in 1 PDS suture running fashion through subcutaneous tissues then closed with 2 layers of the failure #2 Vicryl suture and subcutaneous tissues with 2 Dexon suture in a buried interrupted fashion. Skin was then closed with a skin ana luisa. Leg was then cleaned and dried. A Prevena VAC dressing was applied due to the thick soft tissue envelope. The patient was then transferred to the recovery room in stable condition. Patient tolerated procedure well and there were no complications. Jb Roche, my physician assistant activities director, was present for the entire procedure. His assistance was essential and required for appropriate patient positioning, prepping and draping, surgical exposure, performing the technical details of the operation, placement the implants, closure of the wound, and placement of the sterile bandage. I attest to the content of the Intraoperative Record and any orders documented therein. Any exceptions are noted below.
--- NOTE | 2023-04-28 09:23 | Anesthesiology Progress Note ---
Date of Service April 28, 2023 Anesthesia Post Procedure Vital Signs Vital Signs: Temp Pulse Pulse Resp BP Pulse Ox O2 Del Method 04/28/23 09:10 72 16 130/68 95 Room Air 04/28/23 09:00 76 15 131/66 97 Room Air 04/28/23 08:50 78 14 119/64 97 Room Air 04/28/23 08:40 81 20 114/63 98 Oxymask 04/28/23 08:34 36.2 C L 85 21 111/65 98 Oxymask 04/28/23 05:30 36.7 C 96 H 20 187/106 H 95 Room Air O2 Flow Rate 04/28/23 09:10 04/28/23 09:00 04/28/23 08:50 04/28/23 08:40 6 04/28/23 08:34 10 04/28/23 05:30 Pain Intensity Right Hip: Pain Intensity: 0 Transfer of Care Handoff Completed per policy Notes Mental Status: alert / awake / arousable and participated in evaluation Patient Amnestic to Procedure: Yes Nausea / Vomiting: adequately controlled Pain: adequately controlled Airway Patency, RR, SpO2: stable & adequate BP & HR: stable & adequate Hydration State: stable & adequate Neuraxial Anesthesia: was administered and sensory block is resolving Anesthetic Complications: no major complications apparent and Pt Satisfied with anesthetic care
[2023-04-28] MEDS ORDERED: SENNA 8.6 MG TAB PO SCH (10:16)
[2023-04-28] MEDS ORDERED: bisacodyL 10 MG SUPP PR PRN (10:16)
[2023-04-28] MEDS ORDERED: ALUMINUM/MAGNESIUM SUSP 30 ML UDC PO PRN (10:16)
[2023-04-28] MEDS ORDERED: METOCLOPRAMIDE HCL INJ 5 MG/ML 2 ML VIAL IV PRN (10:16)
[2023-04-28] MEDS ORDERED: MAGNESIUM HYDROXIDE SUSP 30 ML UDC PO PRN (10:16)
--- NOTE | 2023-04-28 10:25 | XRay Report ---
XR hip 1V RT w pelvis CLINICAL HISTORY: Postoperative evaluation. COMPARISON: Right hip radiographs April 02, 2023. FINDINGS: Alignment of the total right hip arthroplasty is anatomic. There is no periprosthetic frac ture or unexpected radiopaque foreign body. There are skin ana luisa. Left hip arthroplasty is unremark able. IMPRESSION: Expected findings following total right hip arthroplasty. ACT 112: Negative or not required by law. Electronically signed by: Jus Pantoja M.D. 04/28/2023 10:24 AM
[2023-04-28] MEDS: MoRPHine SULFATE PF 1 MG/ML 10 ML AMP/VIAL INT SPINAL ONE (10:40)
[2023-04-28] MEDS: SODIUM CHLORIDE 0.9% 1,000 ML IV SCH ×2 (10:40)
[2023-04-28] MEDS: PHENYLEPHRINE 100MCG/ML 5ML SYR ONE (10:40)
[2023-04-28] MEDS: ASPIRIN 81 MG ECTAB PO SCH (10:44)
[2023-04-28] MEDS: DOCUSATE SODIUM 100 MG CAP PO SCH (10:44)
[2023-04-28] MEDS: MULTIVITAMIN TAB PO SCH (10:45)
[2023-04-28] MEDS: Scopolamine CHECK PATCH PLACEMENT SCH (15:08)
[2023-04-28] MEDS: KETOROLAC 30 MG/ML VIAL IV PRN (15:14)
[2023-04-28] MEDS: TRANEXAMIC ACID / 0.7% NACL 1,000 MG/100 ML BAG IV SCH (16:09)
[2023-04-28] MEDS: ASCORBIC ACID 500 MG TAB PO SCH (16:11)
[2023-04-28] MEDS: SENNA 8.6 MG TAB PO SCH (21:40)
[2023-04-29] MEDS ORDERED: traMADol HCL 50 MG TABLET PO PRN (01:15)
[2023-04-29] MEDS ORDERED: HYDROmorphone INJ 0.5 MG/0.5 ML SYR IV PRN (01:15)
[2023-04-29] MEDS: KETOROLAC 30 MG/ML VIAL IV SCH (04:28)
[2023-04-29 07:31] LABS: Basophils # (auto) 0.02 K/uL (0.00-0.20); Basophils % (auto) 0.1 %; Hematocrit (blood only) 35.8 % (37.0-47.0); Hemoglobin 11.6 g/dl (12.0-16.0); Immature Granulocytes # (auto) 0.05 K/uL (0.01-0.20); Immature Granulocytes % (auto) 0.4 %; Lymphocytes # (auto) 1.95 K/uL (1.20-3.40); Lymphocytes % (auto) 14.3 %; Mean Corpuscular Hemoglobin 28.3 pg (25.0-34.0); Mean Corpuscular Hgb Conc 32.4 g/dL (32.0-36.0); Mean Corpuscular Volume 87.3 fL (80.0-100.0); Mean Platelet Volume 10.9 fL (9.4-12.4); Monocytes # (auto) 0.98 K/uL (0.11-0.59); Monocytes % (auto) 7.2 %; Platelet Count 231 K/uL (130-400); RDW Coefficient of Variation 15.1 % (11.5-14.5); RDW Standard Deviation 48.6 fL (36.4-46.3)
[2023-04-29 07:44] LABS: BUN Creatinine Ratio 24.6 (10-20); Calcium 9.3 mg/dl (8.6-10.3); Creatinine Clr Calc Pharmacy 109.8 ml/min; Est GFR (Non-African American) 93.2 ml/min
[2023-04-29] MEDS: dexAMETHasone 10 MG in SYRINGE 0 ML IV SCH (07:44)
--- NOTE | 2023-04-29 12:45 | Surgery Progress Note ---
Date of Service April 29, 2023 Assessment & Plan (1) Status post right hip replacement: Plan: 83-year-old female postop day 1 from a right total hip replacement doing well. Pain is controlled. Therapy went well. Hips located. She is neurologically intact. Open to go home. Plan: 1. DVT prophylaxis including thigh-high teds, SCDs, aspirin twice a day. 2. PT/OT. Weight-bear as tolerated. Right total hip protocol. Needs to obey hip precautions. 3. Pain control doing well with current pain regimen. 4. Care. She got a Prevena VAC dressing in place. That will stay on for 7 days. 5. Disposition plan discharge home. She is going to her own therapy as she had a bad experience with home health last time. She will follow-up in my clinic in 2 weeks. Admission and Anticipated Discharge Date Admission Date: April 28, 2023 Subjective 63-year-old female postop day 1 from a right total hip replacement. She is doing well. Pain is controlled. Therapy went well. She is hoping to go home. Physical Exam Physical Exam: Physical examination is a pleasant middle-age female. She is sitting up in bedside chair looks comfortable. Examination of the right hip and leg reveals the Prevena VAC dressing to be in place. Her thigh is soft and supple. Leg lengths are equal. Hips located. She is neurologically intact Respiratory: normal respiratory effort, lungs clear to auscultation Cardiovascular: RRR, no murmur, no edema Gastrointestinal (Abdomen): normal bowel sounds, soft, nontender, no hepatosplenomegaly Results & Data Vital Signs (Past 12 Hours) Vital Signs Temp Pulse Resp BP Pulse Ox O2 Del Method 04/29/23 11:26 36.7 C 65 18 152/83 H 94 Room Air 04/29/23 10:04 36.6 C 60 18 135/82 98 04/29/23 08:00 18 98 04/29/23 08:00 Room Air 04/29/23 07:18 36.6 C 60 18 135/82 96 Room Air 04/29/23 03:50 36.6 C 67 16 133/78 95 Room Air Laboratory Results Hemoglobin is 11.6. Hematocrit 36.8. Electrolytes are stable. PG Care Time/CCT Total # of Minutes Spent Total Time Spent with Patient: Total time spent is greater than 50% in coordination of care (as documented) at patient's floor/unit and/or counseling patient: Coding Level of Care Code None Diagnoses Status post right hip replacement Z96.641
--- NOTE | 2023-05-06 12:37 | Discharge Summary ---
Date of Service May 06, 2023 Discharge Data Procedures Performed Operation Date: 04/28/23 07:00 Actual Procedures p Right Total Hip Arthroplasty, Uncemented(Right) - Hal Nice MD Hospital Course (1) Status post right hip replacement: This is a 63 year old patient admitted on 04/28/23 and underwent total hip arthroplasty. She tolerated the procedure well and there were no complications. Transferred to the PACU post op and later to the orthopedic floor for further care. She was given ancef for antibiotic prophylaxis. She was also given TREVOR stockings, SCDs, and aspirin for DVT prophylaxis. Hemoglobin, hematocrit, and vital signs were monitored during her hospital stay and remained stable. Did not require any blood transfusions. There were no complications during her hospital stay. By post op day #1 the patient was tolerating a regular diet, pain was reasonably controlled with oral pain medicine, and she was participating in physical therapy. On post op day #1 the patient was discharged home. She was given printed discharge instructions including prescriptions for extra strength tylenol, aspirin, ketorolac, zofran, senokot, and tramadol. Continue hip precautions. Continue physical therapy, weight bearing as tolerated. Continue TREVOR stockings. Follow up approximately 2 weeks post op or sooner if there are problems or concerns. Coding Level of Care Code None Diagnoses Status post right hip replacement Z96.641
== END 2023-04-29 13:18 | disposition home or self-care (01) ==
LOC: 3E 05:06 → ASU 05:06 → 3E 12:20
DX: Z96.642 Presence of left artificial hip joint; I45.2 Bifascicular block; M25.451 Effusion, right hip; M25.751 Osteophyte, right hip; K21.9 Gastro-esophageal reflux disease without esophagitis; M16.11 Unilateral primary osteoarthritis, right hip; Z79.899 Other long term (current) drug therapy; Z79.82 Long term (current) use of aspirin; M65.9 Synovitis and tenosynovitis, unspecified